=== PATIENT | male | born 2005 | race Hispanic/Latino ===

== ENCOUNTER 2025-02-23 15:56 | Emergency (ER) | payer OTHER ==
[~2025-02-23] VITALS: Ht 162.6 cm; Wt 59.0 kg
[2025-02-23 16:01] VITALS: BP 144/79; PULSE 73; RESP 34; TEMP 98.7
[2025-02-23] MEDS: LIDOCAINE HCL 1% 20 ML VIAL INJ STA (16:04)
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
--- NOTE | 2025-02-23 17:02 | HMCIMG ---
EXAM: CR right Shoulder, 2 View. CLINICAL HISTORY: fall COMPARISON: None provided. FINDINGS: BONES: No fracture identified. JOINTS: Anterior and inferior dislocation of the right humeral head relative to the glenoid. SOFT TISSUES: The soft tissues are unremarkable. IMPRESSION: 1. Anterior and inferior dislocation of the right humeral head relative to the glenoid. 2. No fracture identified. /[place]
--- NOTE | 2025-02-23 17:04 | HMCIMG ---
EXAM: CT Head Without IV contrast. CLINICAL HISTORY: fall TECHNIQUE: Axial computed tomography images of the head/brain without intravenous contrast. COMPARISON: None provided. FINDINGS: BRAIN: No evidence of acute hemorrhage. No mass lesion. No CT evidence for acute territorial infarct. No midline shift or extra-axial collections. VENTRICLES: No hydrocephalus. ORBITS: The orbits are unremarkable. SINUSES AND MASTOIDS: The paranasal sinuses and mastoid air cells are clear. BONES: No fracture. SOFT TISSUES: Unremarkable. IMPRESSION: No acute intracranial abnormality. /[place]
[2025-02-23] MEDS: LIDOCAINE HCL 1% 20 ML VIAL ONE (17:27)
[2025-02-23] MEDS: MIDAZOLAM HCL 1 MG/ML 2ML VIAL ONE (17:27)
[2025-02-23] MEDS: MIDAZOLAM HCL 1 MG/ML 2ML VIAL IVP SCH (18:06)
--- NOTE | 2025-02-23 18:12 | HMCIMG ---
EXAM: CR right Shoulder, 2 View. CLINICAL HISTORY: reduction COMPARISON: None provided. FINDINGS: BONES: No acute fracture or aggressive appearing osseous lesion. JOINTS: No dislocation. The joint spaces are normal. SOFT TISSUES: The soft tissues are unremarkable. IMPRESSION: No acute abnormality evident on examination of the right shoulder. No acute fracture or dislocation. /[place]
== END 2025-02-23 18:05 | disposition home or self-care (01) ==
LOC: EDH 15:56
DX: S43.014A Anterior dislocation of right humerus, initial encounter (principal); S43.034A Inferior dislocation of right humerus, initial encounter; V28.49XA Other motorcycle driver injured in noncollision transport accident in traffic accident, initial encounter; Y93.I9 Activity, other involving external motion; Y92.410 Unspecified street and highway as the place of occurrence of the external cause; Y99.8 Other external cause status
CPT/HCPCS: 99285; 23650; 96374; 70450; 73030 ×2; J2003; J2270; J2250; J3490